=== PATIENT | female | born 1985 | race Caucasian/White ===

== ENCOUNTER 2016-12-14 17:34 | Emergency (ER) | payer OTHER ==
[2016-12-14 19:52] LABS: HCG URINE NEGATIVE (NEGATIVE)
== END 2016-12-14 20:42 | disposition home or self-care (01) ==
LOC: D.ER 17:34
PROVIDERS: Physician Assistant
DX: M54.2 Cervicalgia (principal); S09.90XA Unspecified injury of head, initial encounter; W19.XXXA Unspecified fall, initial encounter; Y93.51 Activity, roller skating (inline) and skateboarding; Y92.019 Unspecified place in single-family (private) house as the place of occurrence of the external cause; M54.5 Low back pain